=== PATIENT | female | born 1990 | race Asian ===

== ENCOUNTER 2017-06-30 11:21 | Emergency (ER) | payer BC, OTHER ==
[~2017-06-30] VITALS: Ht 5032.2 cm; Wt 68.0 kg
[2017-06-30 12:24] LABS: URINE HCG NEGATIVE (NEG)
[2017-06-30] MEDS ORDERED: POLOS EACHEYE (12:29)
[2017-06-30 12:35] VITALS: BP 122/78
== END 2017-06-30 12:38 | disposition home or self-care (01) ==
LOC: ER 11:22
DX: H10.9 Unspecified conjunctivitis (principal); N91.2 Amenorrhea, unspecified; Z79.899 Other long term (current) drug therapy
CPT/HCPCS: 81025; 99283